=== PATIENT | female | born 1980 | race Caucasian/White ===

== ENCOUNTER 2018-08-28 10:56 | Emergency (ER) | payer OTHER ==
[~2018-08-28] VITALS: Ht 165.1 cm; Wt 104.3 kg
[2018-08-28 11:53] VITALS: BP 121/81
--- NOTE | 2018-08-28 12:32 | PHYS DOC ---
Past Medical History Past Medical History: No Pertinent History (HARMEET MALIN APRN) Past Surgical History: Cholecystectomy Additional Past Surgical Histo: bilat ear surgery (HARMEET MALIN APRN) Smoking: Cigarettes, Less than 1pk/day Alcohol Use: None Drug Use: None (HARMEET MALIN APRN) Adult General Chief Complaint Chief Complaint: EARACHE/EAR PAIN [facility] HPI Patient is a 38 year old female who presents with left ear pain as this morning. The patient states she was cleaning her ears out with a Q-tip and then after she cleaned her ears out blood started coming out of her left ear. States her pain as 5 out of 10 and throbbing. Not taking any medication prior to arrival. No other symptoms. (HARMEET MALIN APRN) Review of Systems Review of Systems Constitutional: Denies fever or chills [] Eyes: Denies change in visual acuity, redness, or eye pain [] HENT: Denies nasal congestion or sore throat but reports left ear pain. Respiratory: Denies cough or shortness of breath [] Cardiovascular: No additional information not addressed in HPI [] GI: Denies abdominal pain, nausea, vomiting, bloody stools or diarrhea [] : Denies dysuria or hematuria [] Musculoskeletal: Denies back pain or joint pain [] Integument: Denies rash or skin lesions [] Neurologic: Denies headache, focal weakness or sensory changes [] Endocrine: Denies polyuria or polydipsia [] Complete systems were reviewed and found to be within normal limits, except as documented in this note. (HARMEET MALIN APRN) Allergies Allergies Allergies Coded Allergies Type Severity Reaction Last Updated Verified No Known Drug Allergies 08/28/18 No (HARMEET WRIGHT DO) Physical Exam Physical Exam Constitutional: Well developed, well nourished, no acute distress, non-toxic appearance. [] HENT: Normocephalic, atraumatic, bilateral external ears normal, left tympanic membrane is ruptured and there is blood in the middle ear. Right tympanic membrane is pearly prince. oropharynx moist, no oral exudates, nose normal. [] Eyes: PERRLA, EOMI, conjunctiva normal, no discharge. [] Neck: Normal range of motion, no tenderness, supple, no stridor. [] Cardiovascular:Heart rate regular rhythm, no murmur [] Lungs & Thorax: Bilateral breath sounds clear to auscultation [] Abdomen: Bowel sounds normal, soft, no tenderness, no masses, no pulsatile masses. [] Skin: Warm, dry, no erythema, no rash. [] Back: No tenderness, no CVA tenderness. [] Extremities: No tenderness, no cyanosis, no clubbing, ROM intact, no edema. [] Neurologic: Alert and oriented X 3, normal motor function, normal sensory function, no focal deficits noted. [] Psychologic: Affect normal, judgement normal, mood normal. [] (HARMEET MALIN APRN) Current Patient Data Vital Signs Vital Signs Date Time Temp Pulse Resp B/P (MAP) Pulse Ox O2 Delivery O2 Flow Rate FiO2 08/28/18 11:53 98.1 75 18 121/81 (94) 100 Room Air 98.1 (HARMEET WRIGHT DO) EKG EKG [] (HARMEET MALIN APRN) Radiology/Procedures Radiology/Procedures [] (HARMEET MALIN APRN) Course & Med Decision Making Course & Med Decision Making Pertinent Labs and Imaging studies reviewed. (See chart for details) Appears patient ruptured her eardrum cleaning out ear with qtip. Will put on antibiotics and refer to ENT. (HARMEET MALIN APRN) Dragon Disclaimer Dragon Disclaimer This electronic medical record was generated, in whole or in part, using a voice recognition dictation system. (HARMEET MALIN APRN) Departure Departure Impression: Primary Impression: Ruptured or perforated eardrum Disposition: 01 HOME, SELF-CARE Condition: STABLE Referrals: NO PCP (PCP) STAR MORRIS MD Additional Instructions: Follow up with ENT. Stop cleaning your ear out with Q-tips as this likely perforated your eardrum. Do not stick anything in the L ear as it will increase chance of infection. Scripts Amoxicillin (AMOXICILLIN) 875 Mg Tablet 1 TAB PO BID for 10 Days, #20 TAB Prov: HARMEET MALIN APRN 08/28/18 Attending Signature Attending Signature I have reviewed the PA/LAPEL STITCHER's note and plan of care. I was available for consultation as needed during the patient's visit in the emergency department. I agree with the clinical impression, plan, and disposition. (HARMEET WRIGHT DO) Problem Qualifiers Primary Impression: Ruptured or perforated eardrum Laterality: left Qualified Codes: H72.92 - Unspecified perforation of tympanic membrane, left ear HARMEET MALIN APRN August 28, 2018 12:32 HARMEET WRIGHT DO August 30, 2018 05:02
[2018-08-28] MEDS ORDERED: AMOX875T PO (12:42)
== END 2018-08-28 13:14 | disposition home or self-care (01) ==
LOC: ER 10:56
DX: H72.92 Unspecified perforation of tympanic membrane, left ear (principal); F17.210 Nicotine dependence, cigarettes, uncomplicated
CPT/HCPCS: 99283

== ENCOUNTER 2020-04-04 20:14 | Emergency (ER) | payer MEDICAID, MEDICARE, OTHER ==
[~2020-04-04] VITALS: Ht 165.1 cm; Wt 86.3 kg
[~2020-04-04 20:14] MED LIST: AMOX875T PO; CEPH-264 PO
[2020-04-04] MEDS ORDERED: DIPH,PERTUSS(ACELL),TET VAC/PF 0.5 ML SYRINGE. VAX IM ONE (21:00)
[2020-04-04] MEDS ORDERED: LIDOCAINE/EPI/TETRACAINE TOPICAL GEL 3 ML. TP ONE (21:00)
[2020-04-04] MEDS ORDERED: LIDOCAINE 1%/EPI 1:100,000 20 ML VIAL. INJ ONE (21:00)
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
--- NOTE | 2020-04-04 21:12 | RAD ---
EXAM: CT HEAD WITHOUT IV CONTRAST CLINICAL HISTORY: fall, HEAD INJURY COMPARISON: None. TECHNIQUE: Routine CT of the head without contrast. Soft tissues and bone windows were reviewed. PQRS compliance statement - One or more of the following individualized dose reduction techniques wer e utilized for this study: 1. Automated exposure control 2. Adjustment of the mA and/or kV according to patient size 3. Use of iterative reconstruction technique FINDINGS: There is no evidence of hemorrhage, mass or extra-axial fluid collection. Mcadams-white differentiation is maintained with no evidence of edema. There is no mass effect or shift of the intracranial structures. The ventricles, basilar cisterns and cortical sulci are normal in size and configuration for the bri ents stated age. The cerebellum and brainstem are unremarkable. The calvarium demonstrates no evidence of fracture or focal lesion. Partial opacification left mastoid air cells. There is normal aeration of the visualized paranasal si nuses . The visualized portions of the orbits are normal. IMPRESSION: No evidence for acute intracranial process. Partial opacification left mastoid air cells. EXAM: CT CERVICAL SPINE WITHOUT IV CONTRAST CLINICAL HISTORY: Reason: fall, HEAD INJURY / Spl. Instructions: / History: COMPARISON: None available. TECHNIQUE: Helical CT of the cervical spine was performed. Axial, coronal and sagittal reformatted im ages were also performed. PQRS compliance statement - One or more of the following individualized dose reduction techniques wer e utilized for this study: 1. Automated exposure control 2. Adjustment of the mA and/or kV according to patient size 3. Use of iterative reconstruction technique FINDINGS: Vertebral body heights are preserved. Disc heights are grossly preserved. No spondylolisthesis. No ac isa fracture. No significant central canal stenosis or neural foraminal narrowing. IMPRESSION: 1. Negative acute fracture or subluxation. Electronically signed by: Isaiha Ryan MD (04/04/2020 9:10 PM) DEVI
[2020-04-04 22:45] VITALS: BP 126/70
== END 2020-04-04 22:45 | disposition home or self-care (01) ==
LOC: ER 20:14
DX: S01.01XA Laceration without foreign body of scalp, initial encounter (principal); R51.9 Headache, unspecified; M54.2 Cervicalgia; F10.20 Alcohol dependence, uncomplicated; Y90.9 Presence of alcohol in blood, level not specified; F17.200 Nicotine dependence, unspecified, uncomplicated; W18.09XA Striking against other object with subsequent fall, initial encounter; Y93.89 Activity, other specified; Y92.89 Other specified places as the place of occurrence of the external cause; Y99.8 Other external cause status
CPT/HCPCS: 12002; 70450; 72125; 90471; 90715; 99285; J3490

== ENCOUNTER 2020-04-16 10:59 | Emergency (ER) | payer MEDICARE ==
[~2020-04-16] VITALS: Ht 165.1 cm; Wt 89.0 kg
[2020-04-16 11:00] VITALS: BP 115/78
[2020-04-16] MEDS ORDERED: MUPI22OI2 TP (12:22)
[2020-04-16] MEDS ORDERED: CEPH500T PO (12:22)
--- NOTE | 2020-04-16 12:23 | PHYS DOC ---
Past Medical History Past Medical History: No Pertinent History Past Surgical History: Cholecystectomy, Tubal ligation Additional Past Surgical Histo: bilat ear surgery Smoking Status: Current Every Day Smoker Alcohol Use: Occasionally Drug Use: None General Adult EDM: Chief Complaint: SUTURE/STAPLE REMOVAL HPI: HPI: Patient is a 40 year old female who presents to the ED today for staple removal from the left scalp. Mady have been in since April 04, 2020. Review of Systems: Review of Systems: Constitutional: Denies fever or chills. [] Musculoskeletal: Denies back pain or joint pain. [] Integument: Visit for staple removal from the scalp Neurologic: Denies headache, focal weakness or sensory changes. [] Psychiatric: Denies depression or anxiety. [] Heart Score: Risk Factors: Risk Factors: DM, Current or recent (<one month) smoker, HTN, HLP, family history of CAD, obesity. Risk Scores: Score 0 - 3: 2.5% MACE over next 6 weeks - Discharge Home Score 4 - 6: 20.3% MACE over next 6 weeks - Admit for Clinical Observation Score 7 - 10: 72.7% MACE over next 6 weeks - Early Invasive Strategies Allergies: Allergies: Allergies Coded Allergies Type Severity Reaction Last Updated Verified No Known Drug Allergies 08/28/18 No Physical Exam: PE: Constitutional: Well developed, well nourished, no acute distress, non-toxic appearance. [] Skin: Left parietal scalp roughly 20 mady from a laceration site that is well approximated except to the center of the laceration has some drainage. No obvious abscess. Back: No tenderness, no CVA tenderness. [] Extremities: No tenderness, no cyanosis, no clubbing, ROM intact, no edema. [] Neurologic: Alert and oriented X 3, normal motor function, normal sensory function, no focal deficits noted. [] Psychologic: Affect normal, judgement normal, mood normal. [] Current Patient Data: Vital Signs: Vital Signs Date Time Temp Pulse Resp B/P (MAP) Pulse Ox O2 Delivery O2 Flow Rate FiO2 04/16/20 11:00 98.2 80 16 115/78 (90) 100 Room Air 98.2 EKG: EKG: [] Radiology/Procedures: Radiology/Procedures: [] Course & Med Decision Making: Course & Med Decision Making Pertinent Labs and Imaging studies reviewed. (See chart for details) This is a 40-year-old female patient presenting to the ED today for staple removal from the left parietal scalp. Mady have been in since April 04, 2020. Roughly 20 mady were removed by me, the laceration has an are in the middle with small amount of yellow drainage. Patient was put on Bactroban ointment and cephalexin. Instructed to keep the area clean and dry. Follow-up with PCP in 1 to 2 weeks Nicole Disclaimer: Nicole Disclaimer: This electronic medical record was generated, in whole or in part, using a voice recognition dictation system. Departure Departure Impression: Primary Impression: Removal of staple Disposition: 01 DC HOME SELF CARE/HOMELESS Condition: STABLE Referrals: NO PCP (PCP) follow up with your doctor in 1 week Patient Instructions: Staple Care and Removal Additional Instructions: We removed mady from your scalp. Use the prescribed cream to apply to the area twice a day for 10 days. Take the prescribed oral antibiotics until completed. Follow-up with your doctor in 1 to 2 weeks Scripts Mupirocin (MUPIROCIN OINTMENT) 22 Gm Oint...g. 1 CARLEE TP TID for WOUND CARE, #1 TUBE apply to scalp laceration Prov: JEISON BILLS APRN 04/16/20 Cephalexin (CEPHALEXIN) 500 Mg Tablet 1 TAB PO TID, #30 TAB Prov: JEISON BILLS APRN 04/16/20 JEISON BILLS APRN Apr 16, 2020 12:23
== END 2020-04-16 12:26 | disposition home or self-care (01) ==
LOC: ER 10:59
DX: S01.01XD Laceration without foreign body of scalp, subsequent encounter (principal); F17.200 Nicotine dependence, unspecified, uncomplicated; Z90.49 Acquired absence of other specified parts of digestive tract; Z98.51 Tubal ligation status; Z98.890 Other specified postprocedural states; X58.XXXD Exposure to other specified factors, subsequent encounter
CPT/HCPCS: 99283